=== PATIENT | female | born 1960 | race Hispanic/Latino ===

== ENCOUNTER 2021-04-01 11:51 | Inpatient (IN) | payer SELFPAY ==
[~2021-04-01 11:51] MED LIST: Iopamidol 370 76% 100 ML VIAL ONE
[2021-04-01 13:14] LABS: #Eosinphils 0.1 thou/uL (0.0-0.7); #Lymphocytes 1.2 thou/uL (1.20-3.40); #Monocytes 1.3 thou/uL (0.11-0.59); #Neutrophils 8.3 thou/uL (1.40-6.50); %Basophils 0.2 % (0.0-1.0); %Eosinophils 0.5 % (0.0-10.0); %Lymphocytes 11.1 % (21.0-51.0); %Monocytes 12.2 % (0.0-10.0); Hemoglobin 7.8 g/dL (12.0-16.0); Mean Corpuscular HGB CONC 29.4 g/dL (32.0-36.0); Mean Corpuscular Hemoglobin 20.1 pg (27.0-31.0); Mean Corpuscular Volume 68.1 fL (78.0-98.0); Mean Platelet Volume 11.5 fL (7.4-10.4); Platelet Count 308 thou/uL (130-400); RBC Distribution Width 19.5 % (11.5-14.5); Red Blood Cell (RBC) Count 3.88 mill/uL (4.20-5.40)
[2021-04-01 13:33] LABS: Anisocytosis SLIGHT = 6-15 cells (100X) (0-5/hpf); Hypochromia SLIGHT = 6-15 cells (100X) (0-5/hpf); Large Platelets SLIGHT; MDiff Complete? YES; Microcytosis MODERATE=15-30 cells (100X) (0-5/hpf); Ovalocytes SLIGHT = 2-5 cells (100X) (0-1/hpf); Platelet Morphology Comment Appears Adequate; Polychromasia SLIGHT = 2-3 cells (100X) (0-2/hpf); Stomatocytes SLIGHT = 2-5 cells (100X) (0-1/hpf); Target Cells SLIGHT = 2-5 cells (100X) (0-1/hpf); Tear Drops SLIGHT = 2-5 cells (100X) (0-1/hpf)
[2021-04-01 13:34] LABS: ALT (SGPT) 13 U/L (8-55); AST (SGOT) 19 U/L (5-34); Albumin 3.7 g/dL (3.4-4.8); Alkaline Phosphatase 76 U/L (40-110); Anion Gap 9 mmol/L (10-20); BUN (Urea Nitrogen) 17 mg/dL (9.8-20.1); Bilirubin, Total 0.5 mg/dL (0.2-1.2); Calc. Creatinine Clearance 0 mL/min (70-130); Calcium 8.9 mg/dL (7.8-10.44); Carbon Dioxide 27 mmol/L (23-31); Chloride 103 mmol/L (98-107); Globulin 2.5 g/dL (2.4-3.5); Glucose 98 mg/dL (80-115); Lipase 10 U/L (8-78); Potassium 3.4 mmol/L (3.5-5.1); Protein, Total 6.2 g/dL (5.8-8.1); Sodium 136 mmol/L (136-145)
[2021-04-01] MEDS ORDERED: Fentanyl 100 MCG/2 ML VIAL ONE (14:27)
[2021-04-01] MEDS ORDERED: Acetaminophen 500 MG TAB ONE (14:37)
[2021-04-01 14:52] LABS: Actual Bicarbonate (HCO3v) 22 mEq/L (22-28); Analyzer IN Cardio ER; Base Excess -3.3 mEq/L (-2.0 to +3.0); Calcium, Ionized (venous) 1.07 mmol/L (1.16-1.32); Chloride (VBG) 108 mmol/L (98-106); Hemoglobin (Hb) 7.6 g/dL (11.7-16.0); Potassium (VBG) 3.35 mmol/L (3.70-5.30); Sodium 136.2 mmol/L (133-146); pH (venous) 7.33 (7.32-7.43)
[2021-04-01] MEDS ORDERED: Acetaminophen 650 MG Suppository PR PRN (20:58)
[2021-04-01] MEDS ORDERED: Ondansetron PF 4 MG/2 ML Vial IVP PRN (20:58)
[2021-04-01] MEDS ORDERED: Acetaminophen 325 MG TAB PO PRN (20:58)
[2021-04-01] MEDS ORDERED: Ondansetron ODT 4 MG TAB PO PRN (20:58)
[2021-04-01] MEDS ORDERED: Potassium Chloride 20 MEQ TAB PO SCH (21:15)
[2021-04-01] MEDS ORDERED: Electrolyte Replacement Protocol 1 EACH FS SCH (21:15)
[2021-04-01] MEDS ORDERED: HumaLOG 300 UNITS/3 ML VIAL SC PRN ×2 (21:17)
[2021-04-01] MEDS ORDERED: Dextrose 50% Abboject 50 ML SYRINGE SLOW IVP PRN (21:17)
[2021-04-01] MEDS ORDERED: Dextrose 5% in Water 1,000 ML IV PRN (21:17)
[2021-04-01 23:03] VITALS: BMI 27.0
[2021-04-01] MEDS: Sodium Chloride 0.9% 1,000 ML IV SCH (23:38)
[2021-04-02 05:28] LABS: #Eosinphils 0.1 thou/uL (0.0-0.7); #Lymphocytes 1.5 thou/uL (1.20-3.40); #Monocytes 0.8 thou/uL (0.11-0.59); #Neutrophils 5.9 thou/uL (1.40-6.50); %Basophils 0.2 % (0.0-1.0); %Lymphocytes 18.4 % (21.0-51.0); %Monocytes 9.7 % (0.0-10.0); %Neutrophils 70.7 % (42.0-75.0); Hemoglobin 6.2 g/dL (12.0-16.0); Mean Corpuscular HGB CONC 28.6 g/dL (32.0-36.0); Mean Corpuscular Hemoglobin 19.9 pg (27.0-31.0); Mean Corpuscular Volume 69.6 fL (78.0-98.0); Mean Platelet Volume 11.8 fL (7.4-10.4); Platelet Count 245 thou/uL (130-400); RBC Distribution Width 19.4 % (11.5-14.5); Red Blood Cell (RBC) Count 3.11 mill/uL (4.20-5.40); White Blood Cell (WBC) Count 8.3 thou/uL (4.8-10.8)
[2021-04-02 06:15] LABS: Iron Binding Capacity, Total 280 mcg/dL (265-497); Magnesium 1.4 mg/dL (1.6-2.6)
[2021-04-02 06:16] LABS: Ferritin 14.45 ng/mL (10-291); Thyroid Stimulating Hormone 0.9061 uIU/mL (0.35-4.94)
[2021-04-02 06:23] LABS: Iron Less than 8 ug/dL (50-170)
[2021-04-02] MEDS ORDERED: Magnesium Sulfate 4 GM in Sodium Chloride 0.9% 250 ML 250 ML IVPB SCH (06:30)
[2021-04-02 06:40] LABS: Anion Gap 14 mmol/L (10-20); BUN (Urea Nitrogen) 10 mg/dL (9.8-20.1); Calc. Creatinine Clearance 98 mL/min (70-130); Calcium 7.4 mg/dL (7.8-10.44); Carbon Dioxide 16 mmol/L (23-31); Chloride 113 mmol/L (98-107); Glucose 68 mg/dL (80-115); Iron 10 ug/dL (50-170); Iron Binding Capacity, Total 283 mcg/dL (265-497); Potassium 3.8 mmol/L (3.5-5.1); Sodium 139 mmol/L (136-145)
[2021-04-02] MEDS ORDERED: Enoxaparin Sodium 40 MG/0.4 ML SYRINGE SC SCH (09:00)
[2021-04-02] MEDS: Sodium Chloride 0.9% 1,000 ML IV SCH (11:23)
[2021-04-02 13:52] LABS: SARS-CoV-2 PCR by NAA Not Detected (NotDetected)
[2021-04-02] MEDS ORDERED: Piperacillin/Tazobactam 4.5 GM in Sodium Chloride 0.9% 100 ML IVPB SCH (14:00)
[2021-04-02] MEDS ORDERED: Piperacillin/Tazobactam 3.375 GM in Sodium Chloride 0.9% 100 ML IVPB SCH (14:00)
[2021-04-02] MEDS: Pantoprazole 80 MG in Sodium Chloride 0.9% 100 ML IVPB SCH (16:22)
[2021-04-02 16:54] LABS: Hemoglobin 7.5 g/dL (12.0-16.0)
[2021-04-02] MEDS: Piperacillin/Tazobactam 3.375 GM in Sodium Chloride 0.9% 100 ML IVPB SCH (19:25)
[2021-04-02] MEDS ORDERED: GoLYTELY 4,000 ml Bottle PO SCH (19:45)
[2021-04-02 19:47] LABS: Hemoglobin 7.6 g/dL (12.0-16.0)
[2021-04-02] MEDS: Atorvastatin Calcium 40 MG TAB PO SCH (21:15)
[2021-04-03] MEDS: Sodium Chloride 0.9% 1,000 ML IV SCH ×3 (01:00→12:30)
[2021-04-03] MEDS: Pantoprazole 80 MG in Sodium Chloride 0.9% 100 ML IVPB SCH (01:15)
[2021-04-03] MEDS: Piperacillin/Tazobactam 3.375 GM in Sodium Chloride 0.9% 100 ML IVPB SCH ×3 (01:47→20:44)
[2021-04-03] MEDS: Levothyroxine Sodium 75 MCG TAB PO SCH (06:59)
[2021-04-03] MEDS ORDERED: PHENYLEPHRINE-NS 100 MCG/ML 10 ML SYRINGE ONE (09:55)
[2021-04-03] MEDS ORDERED: Lidocaine 1% PF 5 ML VIAL ONE (10:06)
[2021-04-03] MEDS ORDERED: PROPOFOL 200 MG/20 ML VIAL ONE (10:06)
[2021-04-03] MEDS: Lisinopril 10 MG TAB PO SCH (12:18)
[2021-04-03 12:45] LABS: Bacteria/HPF None Seen HPF (None Seen); Bilirubin Negative (Negative); Blood, Urine Negative (Negative); Clarity Clear (Clear); Glucose, Urine (Dipstick) Normal (Negative); Ketone, Urine 60 mg/dL (Negative); Leukocyte Negative Leu/uL (Negative); Nitrite Negative (Negative); Protein, Urine (Dipstick) 70 mg/dL (Neg-Trace); Specific Gravity, Urine 1.016 (1.002-1.036); Squamous Epithelial 0-3 HPF (0-3); Urobilinogen Normal mg/dL (Less than 2)
[2021-04-03 12:49] LABS: Urine Culture Reflex Yes Yes
[2021-04-03] MEDS: Cephalexin 250 MG CAP PO SCH (20:44)
[2021-04-03] MEDS: Atorvastatin Calcium 40 MG TAB PO SCH (20:44)
[2021-04-04] MEDS: Piperacillin/Tazobactam 3.375 GM in Sodium Chloride 0.9% 100 ML IVPB SCH (03:45)
[2021-04-04] MEDS: Levothyroxine Sodium 75 MCG TAB PO SCH (05:13)
[2021-04-04] MEDS ORDERED: metFORMIN 500 MG TAB PO SCH (08:00)
[2021-04-04] MEDS: Cephalexin 250 MG CAP PO SCH (08:44)
[2021-04-04] MEDS: Lisinopril 10 MG TAB PO SCH (08:44)
[2021-04-04] MEDS ORDERED: Gabapentin 300 MG CAP PO SCH (09:00)
[2021-04-04 12:06] LABS: Hemoglobin 7.6 g/dL (12.0-16.0); Platelet Count 217 thou/uL (130-400)
[2021-04-04 15:49] VITALS: BP 145/67; TEMP 99
== END 2021-04-04 15:50 | disposition home or self-care (01) | DRG 812 ==
LOC: ERS 11:51 → 2NO 16:58
PROVIDERS: ADMIT Internal Medicine; ATTEND Internal Medicine
PROC: 30233N1 Transfusion of Nonautologous Red Blood Cells into Peripheral Vein, Percutaneous Approach (ICD-10-PCS; principal; 2021-04-02)
PROC: 8E0ZXY6 Isolation (ICD-10-PCS; 2021-04-02)
PROC: 0DB98ZX Excision of Duodenum, Via Natural or Artificial Opening Endoscopic, Diagnostic (ICD-10-PCS; 2021-04-03)
PROC: 0DJD8ZZ Inspection of Lower Intestinal Tract, Via Natural or Artificial Opening Endoscopic (ICD-10-PCS; 2021-04-03)
DX: D50.9 Iron deficiency anemia, unspecified (principal); L03.115 Cellulitis of right lower limb; R78.81 Bacteremia; Z20.822 Contact with and (suspected) exposure to COVID-19; N83.8 Other noninflammatory disorders of ovary, fallopian tube and broad ligament; E11.9 Type 2 diabetes mellitus without complications; I10 Essential (primary) hypertension; E03.9 Hypothyroidism, unspecified; E78.5 Hyperlipidemia, unspecified; E86.0 Dehydration; M81.0 Age-related osteoporosis without current pathological fracture; K63.89 Other specified diseases of intestine; I95.9 Hypotension, unspecified; K64.4 Residual hemorrhoidal skin tags; B96.89 Other specified bacterial agents as the cause of diseases classified elsewhere; Z79.899 Other long term (current) drug therapy
CPT/HCPCS: 36415; 36416; 36430; 71045; 74177; 76856; 80048; 80053; 81001; 82274; 82728; 82805; 83540; 83550; 83605; 83690; 83735; 84443; 84484; 85014; 85018; 85025; 85049; 86304; 86850; 86900; 86901; 87040; 87045; 87046; 87077; 87081; 87086; 87324; 87427; 87449; 88305; 93005; 96374; C9113; J2543; J2704; J3010; J3475; J3490; J7050; P9016; Q9967; U0003; U0005